=== PATIENT | female | born 1935 | race Caucasian/White ===

== ENCOUNTER → 2018-07-01 | Outpatient (CLI) | payer OTHER, BC ==
[~2018-07-01] VITALS: Ht 172.7 cm; Wt 46.0 kg
[~2018-07-01] MED LIST: ABILIFY 2 MG2 M1 PO; ABILIFY 2 MG2 MG PO; ACETAMINOPHEN325 M1 PO; ACIDOPHILUS1 EAC3 PO; AGGRENOX 25 MG1 EACH PO; AGGRENOX CAPSU1 EACH PO; ALEVE220 M1 PO; ALEVE220 MG PO; APAP500 PO; BEANO1 EACH PO; BENICAR40 MG PO; BENTYL10 MG PO; BONIVA150 MG PO; BONIVA3 MG/3 ML IJ; BYSTOLIC 5 MG5 M1 PO; CALCIUM 500 +1 EAC5 PO; CALCIUM 600 +1 EAC1 PO; CARAFATE 1 GM TA1 G1 PO; COLESTID1 GM PO; COMPAZINE10 MG PO; COMPAZINE25 MG RECTAL; CYMBALTA30 MG PO; DAIRY DIGES4500 UNI1 PO; DAIRY RELIE3000 UNIT PO; DEPLIN7.5 MG PO; DITROPAN XL5 M1 PO; DRAMAMINE50 MG PO; DROPERIDOL IT; FEVERALL650 MG RECTAL; GAS RELIEF125 M1 PO; GAS X; GLUCOSAMINE CH1 EAC8 PO; GLUCOSAMINE/CHOND PO; HYDROCODON-ACE1 EAC5 PO; HYDROCODON-ACE1 EAC8 PO; HYOPHEN TABLET1 EACH PO; INTRATHECAL MED; L-LYSINE1000 M1 PO; L-LYSINE500 M1 PO; L-LYSINE600 MG PO; LACTAID EXT4500 UNIT PO; LOMOTIL TABLET1 EACH PO; LORAZEPAM 22 MG/1 ML PO; LOVAZA1000 MG PO; LUTEIN20 MG PO; MARINOL2.5 MG PO; MEGACE40 MG/ML PO; MIRALAX255 GM PO; MORPHINE 2 IT; NEURONTIN 300300 M1 PO; NEXIUM40 MG PO; NORCO 5-325 TA1 EACH PO; NORVASC10 MG PO; NORVASC5 MG PO; ONE DAILY MULT1 EAC2 PO; OXYCODONE HCL E10 MG PO; OXYCODONE-APAP1 EAC4 PO; OXYCONTIN20 M1 PO; OXYCONTIN40 MG PO; OYSTER SHELL C1 EA14 PO; PLAVIX 75 MG TA75 M1 PO; PROBIOTIC1 EAC1 PO; PROBIOTIC1 EACH PO; PROTONIX40 M1 PO; PROZAC 10 MG CA10 M1 PO; PROZAC20 MG PO; REGLAN 5 MG TAB5 MG PO; REMERON15 MG PO; ROXANOL T PO; SENNOSIDES-DOC1 EACH PO; SYNTHROID25 MCG PO; THERA1 EACH PO; TRANSDERM-SCO1 PATC1 TD; TUMS PO; TYLENOL325 MG PO; UNISOM SLEEP AI25 MG PO; URECHOLINE25 MG PO; VITAMIN B12 PO; VITAMIN D-32000 UNIT PO; VYTORIN 10-201 EACH PO; ZOCOR20 MG PO; ZOFRAN 4 MG ORAL4 MG PO; ZOFRAN ODT4 MG PO; ZOFRAN8 MG PO
--- NOTE | ~2018-07-01 | HPC ---
Formerly [facility] [place] [address] PAIN MANAGEMENT CONSULTATION Name: MARIO GARCIA Room #: REG [facility].#: [id number] Admission: 07/01/18 Attend Phys: Neftali Huddleston MD Discharge: Date of : 31 Report #: [id number] THIS REPORT FOR: //name// CC: Loida Huddleston DATE OF SERVICE: 07/01/2018 Followup visit for now left hip pain. The patient is here today with her daughter. Her primary complaint is pain in the left hip. She cannot bear weight on the left leg. She has a history of femoral neck fracture and has 3 screws in the femoral neck, which we discovered when we performed an injection. She was taken off her Plavix in anticipation of an injection. The patient has been a longstanding patient in my clinic originally for an intrathecal therapy. We had to remove the pump about a year ago when she developed symptoms of weakness. It was felt that the pump might be playing a role after Dr. Mary Garza removed the pump and catheter system. Her weakness in the lower extremities resolved. We never did determine what the ultimate cause was. She did not have a granuloma. There is some suspicion that perhaps there might been a contaminant in her medication, but I am not sure, will never know. We are fortunate that action was taken and resulted in resolution of her problems at that time. The problem today is the left hip, she cannot bear any weight on the left leg. We noted on x-rays today that the pants appeared to be eroding through the femoral head. She is here today for an injection and we did not see that until we took her into the room for treatment. I have reviewed all her medications, which [facility] She is currently residing at [facility]. PHYSICAL EXAMINATION: She is alert. She recognizes me. She has some memory issues. Her blood pressure is 136/63, heart rate 97. She is 5 feet 8 inches, 101 pounds, BMI is 15.4. Examination of the spine reveals minimal tenderness. She has some persistent bruising in the area where intrathecal pump was. After they removed it, there was unresolved hematoma that has left lasting heavy scar. The left hip is painful with movement in all planes, internal and external rotation and flexion. Local tenderness that radiates into the groin. IMPRESSION: Severe pain, left hip. 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 Formerly [facility] [address] [place] [address] PAIN MANAGEMENT CONSULTATION Name: MARIO GARCIA Room #: REG [facility]#: [id number] Admission: 07/01/18 Attend Phys: Neftali Huddleston MD Discharge: Date of : 31 Report #: [id number] PROCEDURE: Left hip injection. She was taken to fluoroscopic suite, placed supine, skin prepped with ChloraPrep. Skin was anesthetized to the inferomedial aspect of the left hip joint. I advanced a 25-gauge needle gently into the joint space and capsule. After negative aspiration, I injected a total of 0.5 mL of Omnipaque, which demonstrated nice spread into the joint capsule. This was then followed by 3 mL of 0.5% lidocaine mixed with 40 mg of triamcinolone. She tolerated the procedure well. Her pain was markedly reduced at discharge and she was able to bear weight. I did share the pictures with her daughter, Ximena, who will pursue further options for these hip screws. By: [id number] Neftali Huddleston MD /nt
[2018-07-01 13:14] VITALS: BP 136/63
== END | disposition home or self-care (01) ==
LOC: PAIN 06-17 10:38
DX: M25.552 Pain in left hip (principal); G89.29 Other chronic pain; Z98.890 Other specified postprocedural states; Z87.891 Personal history of nicotine dependence; Z88.8 Allergy status to other drugs, medicaments and biological substances; Z79.899 Other long term (current) drug therapy